=== PATIENT | female | born 1970 | race Caucasian/White ===

== ENCOUNTER 2024-12-26 12:36 | Inpatient (IN) | payer BC, SELFPAY ==
[2024-12-26] VITALS (13 sets, daily range): BP systolic 105–133; BP diastolic 66–85; BMI 39.4; BMI 38.3
[2024-12-26 06:29] LABS: ALT (SGPT) 14 U/L (0-35); AST (SGOT) 13 U/L (14-36); Albumin 3.8 g/dl (3.5-5.0); Alkaline Phosphatase 72 U/L (38-126); Blood Urea Nitrogen 16 mg/dl (7-17); Calcium 9.5 mg/dl (8.4-10.2); Carbon Dioxide 26 mmol/L (22-30); Chloride 103 mmol/L (98-107); Glucose 126 mg/dl (70-99); Potassium 4.0 mmol/L (3.5-5.1); Sodium 135 mmol/L (135-145); Total Protein 5.9 g/dl (6.3-8.2); eGFR > 60.00
--- NOTE | 2024-12-26 06:33 | ED.GENMED ---
History of Present Illness
General
Chief Complaint: Headache
Source: patient
Exam Limitations: none
Time Seen by Provider: 12/26/24 06:17
Nursing documentation reviewed up to this point in time: agreed with
History of Present Illness
History of Present Illness:
Note:
CHIEF COMPLAINT(S)
Fever and migraine headache.
HISTORY OF PRESENT ILLNESS
The patient is a 54-year-old female with a history of non-Hodgkins lymphoma currently undergoing chemotherapy at [facility]. She presents with fever and severe migraine headaches. She reports the fever started a few days ago and has been fluctuating, with
a peak recorded at 100.6�F overnight. She has attempted to manage it at home but sought medical attention due to persistent symptoms. The migraine has persisted for the past three days and is more severe than her past migraines, accompanied by
nausea. She denies any urinary symptoms. There is no significant cough present, although the patient acknowledges a mild, non-specific cough. There are no known exposures to sick individuals, and she exercises caution following her chemotherapy
treatments.
SOCIAL HISTORY
The patient tries to adhere to precautions post-chemotherapy, limiting her outings, although she did mention going out for meals.
REVIEW OF SYSTEMS
- General: Fever, headache.
- Head: Severe migraine headaches for three days, worse than previous episodes.
- Gastrointestinal: Associated nausea with headaches.
- Respiratory: Denies significant cough.
- Genitourinary: No urinary symptoms.
PHYSICAL EXAM
General: Alert, no acute distress.
Skin: Warm, dry.
Head: Normocephalic, atraumatic.
Neck: Supple, trachea midline.
Eye, Ears, Nose, Mouth, and Throat: Oral mucosa moist.
Cardiovascular: Normal peripheral perfusion, No edema.
Respiratory: Respirations are non-labored.
Gastrointestinal: Abdomen nondistended.
Back: Normal range of motion, Normal alignment.
Musculoskeletal: Normal range of motion, normal strength.
Neurological: Alert and oriented to person, place, time, and situation, No focal neurological deficit observed.
Psychiatric: Cooperative, appropriate mood & affect.
PLAN
- Administer medication to alleviate migraine headache.
- Perform blood cultures to assess potential infection.
- Conduct tests for influenza and COVID-19.
- Obtain a urine sample to rule out urinary tract infection.
- Consider chest X-ray to assess any underlying respiratory issues.
DIFFERENTIAL DIAGNOSIS
The Differential Diagnosis includes, in no particular order and is not limited to:
1. Infection related to immunosuppression (e.g., bacterial, viral)
2. Drug-induced fever
3. Chemotherapy-related side effects
4. Common cold/flu
5. Viral syndrome
6. Urinary tract infection
7. Sinusitis
8. Meningitis
9. Sepsis
10. Primary headache disorders (e.g., migraines)
CARE-UPDATE
12/26/24 - 08:14
Continue current treatment plan for neutropenic fever with cefepime. Assess and manage presenting symptoms suggestive of migraine, meningitis, or other intracranial infection. Patient to be admitted under hospitalist care for further evaluation and
management of symptoms. Additional diagnostics and monitoring may be required based on clinical progression.
Disposition:
SUMMARY OF ENCOUNTER
The patient, a 54-year-old female with a history of non-Hodgkins lymphoma currently undergoing chemotherapy, presented to the emergency department with fever and severe migraine headaches. Given her immunocompromised state and the concern for
potential infection, she was evaluated for neutropenic fever. Initial evaluations included plans for blood cultures, influenza, and COVID-19 testing, as well as administration of medication for migraine relief. The hospitalist team was contacted to
admit the patient for further monitoring, given her risk factors and persistent symptoms. The patients condition was considered stable upon evaluation.
DISPOSITION
Admit.
ASSESSMENT
Suspected neutropenic fever associated with chemotherapy and severe migraine in the context of non-Hodgkins lymphoma.
MANAGEMENT OF THE PATIENTS CARE WAS DISCUSSED WITH
Hospitalist contacted for admission and further management.
PLAN
Admit the patient for further monitoring and management. Administer medications to address migraine headaches, conduct diagnostic tests to rule out infections, and continue supportive care for neutropenia.
MEDICATION RECONCILIATION
Migraine medication administered to address headache severity.
MEDICAL DECISION MAKING
-Complexity of Data Reviewed: Chronic conditions affecting care include non-Hodgkins lymphoma, ongoing chemotherapy, and history of migraines. Differential diagnosis considered conditions such as infection related to immunosuppression, drug-induced
fever, chemotherapy-related side effects, common cold/flu, viral syndrome, urinary tract infection, sinusitis, meningitis, sepsis, and primary headache disorders.
-Data:
Category 1: Blood cultures and influenza/COVID-19 tests were ordered. Chest X-ray and urine sample were considered to rule out other potential sources of infection.
Category 3: Management and patient care were coordinated with the hospitalist team for admission due to the complexity and risk associated with the patients immunocompromised state.
DIAGNOSIS
Neutropenic fever (ICD-10 D70.9), Non-Hodgkin lymphoma (ICD-10 C85.90), Migraine (ICD-10 G43.909).
Phy Exam
Physical Exam
Physical Exam:
.
Course
Orders/Labs/Results
Orders:
Orders
12/26/24 05:49
CMP [Comprehensive Metabolic Panel] Urgent
Complete Blood Count/With Diff Urgent
Manual Differential Urgent
12/26/24 06:29
Ketorolac [Toradol] 15 mg IV NOW STA
12/26/24 06:37
Diphenhydramine [Benadryl] 25 mg IV NOW STA
Metoclopramide [Reglan] 10 mg IV NOW STA
12/26/24 07:00
Blood Culture Q30M
ANABELLE Source: Blood/Venous
Specimen Description:
12/26/24 07:05
COVID-19 Antigen Urgent
Source: Nasal Swab
Lactic Acid Q4H
Comment: CANCEL 2nd LACTIC ACID IF 1st LACTIC ACID IS LESS THAN 2
Urinalysis Reflex To Culture Urgent
Date Specimen was Collected: 12/26/24
Time Specimen was Collected: 07:04
Urine Microscopic Reflex Cult Urgent
Blood Culture Q30M
ANABELLE Source: Blood/Venous
Specimen Description:
Influenza A+B Rapid Molecular Urgent
ANABELLE Source: Nasal Swab
Specimen Description:
12/26/24 07:19
CR Chest - 2 Views Urgent
Comment:
Reason For Exam: fever
12/26/24 08:10
Acetaminophen [Tylenol] 650 mg PO NOW STA
Cefepime HCl [Maxipime] 2,000 mg IV NOW STA
12/26/24 08:46
Morphine Sulfate 4 mg IV NOW STA
12/26/24 10:30
Lactic Acid Q4H
Comment: CANCEL 2nd LACTIC ACID IF 1st LACTIC ACID IS LESS THAN 2
12/26/24 11:56
Admit/Transfer Patient As Directed
Co-Sign Provider:
Level of Care: Inpatient admission
Assign to:: Telemetry
Physician / Group: Dr. Gigi Correia/Hospitalists
Diagnosis: Neutropenic Fever
Reason for Telemetry: Arrhythmia
Date to Stop Telemetry: 12/29/24
Time to Stop Telemetry: 11:00
Reason for Hospitalization: Neutropenic Fever
Expected length of stay greater than two midnights?: Yes
ELOS- Estimated Length of Stay in days: 3
I certify the patient meets the requirements for IP care: Yes
12/26/24 11:57
Code Status As Directed
Resuscitation Status: Full Code
12/26/24 12:03
Precautions As Directed
Type of Precautions: Neutropenic
12/26/24 12:06
ONCOLOGY CONSULT Routine
Consulting Provider: John Mensah
Was physician already notified: Yes
Reason for consult: Neutropenic Fever. Non-Hodgkins Lymphoma getting chemo currently
12/26/24 12:09
INFECTIOUS DISEASE CONSULT Routine
Consulting Provider: Juan Feliciano
Was physician already notified: Yes
Reason for consult: Neutropenic Fever -- Heme/Onc Requested ID consult
12/26/24 16:30
Cefepime HCl [Maxipime] 2,000 mg IV Q8H
12/29/24 11:00
DC Protocol for Telemetry ONCE
Abnormal Lab Results
12/26/24 12/26/24
05:49 07:05
WBC 0.5 L* 10^3/uL
(4.8-10.8)
RBC 3.19 L 10^6/uL
(4.20-5.40)
Hgb 9.8 L g/dL
(12.0-16.0)
Hct 28.0 L %
(37.0-47.0)
RDW 16.1 H %
(11.5-14.5)
Plt Count 74 L 10^3/uL
(130-400)
MPV 11.7 H fL
(7.4-10.4)
Abs Neuts (Manual) 0.0 L* 10^3/uL
(1.4-6.5)
Segmented Neutrophils 3 L %
(42-75)
Lymphocytes (Manual) 80 H %
(20-51)
Monocytes (Manual) 11 H %
(2-9)
Glucose 126 H mg/dl
(70-99)
AST 13 L U/L
(14-36)
Total Protein 5.9 L g/dl
(6.3-8.2)
Ur Occult Blood Reflex 1+ A
(Negative)
Urine Bacteria (Reflex) Few A
(Negative)
Urine Yeast Few A
(Negative)
12/26/24 05:49
12/26/24 05:49
Vital Signs
Initial and Last Documented VS:
Initial Vital Signs
Temp Pulse Resp BP Pulse Ox
98.3 F 109 18 108/71 100
12/26/24 04:12/26/24 04:29 12/26/24 04:29 12/26/24 04:12/26/24 04:29
Last Documented Vital Signs
Temp Pulse Resp BP Pulse Ox
98.3 F 109 18 117/70 96
12/26/24 04:29 12/26/24 04:29 12/26/24 04:29 12/26/24 12:00 12/26/24 13:00
*Pulse Oximetry
SaO2: 100
Oxygen Mode of Delivery: Room air
Patient hypoxic: no
*Critical Care Note
Total Time (30-74mins, 75-104mins- exclusive of procedures): Not Applicable
ED Attending Note
-
Portions of this chart may have been created with voice recognition software.� Occasional wrong word or��sound alike� substitutions may have occurred due to the inherent limitations of voice recognition software.
Discharge Plan
Departure
Patient Disposition: Admit
Date of Disposition: 12/26/24
Time of Disposition: 08:10
Admit to: Med/Surg
Presentation/result/management discussed w/ accepting MD/DO: Hospitalist
Patient with high blood pressure during this ER visit?: No
Condition: Good
Discharge Problem:
Neutropenia with fever, Migraine
Interventions
Interventions:
*Risk Screen - Suicide Last Done: 12/26/24 07:45
*General Assessment Last Done: 12/26/24 04:29
*Neglect/Abuse Screening Last Done: 12/26/24 04:29
*ED- Fall Risk Assessment Last Done: 12/26/24 07:45
*ED COVID-19 Vaccine History Last Done: 12/26/24 07:45
ED- Neurological Assessment Last Done: 12/26/24 05:30
[2024-12-26] MEDS: TORADOL 15 MG IV (06:46)
[2024-12-26] MEDS: BENADRYL 25 MG IV (06:48)
[2024-12-26] MEDS: REGLAN 10 MG IV (06:51)
[2024-12-26 07:17] LABS: Hematocrit 28.0 % (37.0-47.0); Hemoglobin 9.8 g/dL (12.0-16.0); Mean Corp Hgb Conc. 35.0 g/dL (33.0-37.0); Mean Corpuscular Volume 87.8 fL (81.0-99.0); Platelet Count 74 10^3/uL (130-400); Red Cell Dist. Width 16.1 % (11.5-14.5)
[2024-12-26 07:43] LABS: COVID-19 Antigen Negative (Negative)
[2024-12-26 07:59] LABS: Urine Character Clear (Clear)
[2024-12-26 08:05] LABS: Normal RBC Morphology Yes; Platelets Checked Yes
[2024-12-26 08:06] LABS: Total Cells Counted 100
[2024-12-26 08:07] LABS: Absolute Neutrophils -Man Diff 0.0 10^3/uL (1.4-6.5)
[2024-12-26] MEDS: MAXIPIME 2000 MG IV ×2 (08:32→18:53)
[2024-12-26 08:45] LABS: Urine Squamous Cell >30 /LPF (Few)
--- NOTE | 2024-12-26 08:45 | HPS.HSE ---
Addendum entered and electronically signed by Gigi Correia MD 12/26/24 18:44:
No CT Head needed at this time
Original Note:
Family Physician
-
Family Physician: Peña Mathis
Chief Complaint
-
Fevers
History of Present Illness
54 year old female with past medical history of palpitations (sees computer programming supervisor Humberto at [place]), hypertension, DVT, non-Hodgkins lymphoma (initially had neck lump when first diagnosed), currently undergoing chemotherapy at [facility] and GERD,
Migraine Headaches and TMJ, presented with fever and severe migraine headaches. She reported that the fever started a few days ago and has been on and off, with a peak recorded at 100.6�F overnight. Patient also had Migraine headache similar to her
past episodes. She denied any urinary symptoms, significant cough, shortness of breath, bleeding, chest pain, joint swelling or pain, new skin rash, any known exposures to sick individuals. She exercises caution following her chemotherapy treatments.
Medical History
Past Medical History
Past Medical History: Reports Other (As per HPI above)
Past Surgical History: Reports Other (Umbilical Hernia, Tooth Extractions, Right Foot Infection with Fluid Drainage Performed)
Social History
Tobacco: Non-smoker
Alcohol: Former
Drug: None
Family History
Family History: Not pertinent
Allergies / Home Medications
Allergies reflects when Allergies were last updated in [employer].
Home Medications with original date entered in [employer]
Allergy/Medication List:
Allergies
Allergy/AdvReac Type Severity Reaction Status Date / Time
No Known Allergies Allergy Unverified 12/26/24 04:31
Home Medications
allopurinol 300 mg tablet 300 mg PO DAILY 12/26/24
apixaban 5 mg tablet (Eliquis) 5 mg PO BID 12/26/24
lorazepam 0.5 mg tablet 0.5 mg PO TID 12/26/24
metoprolol tartrate 50 mg tablet (Lopressor) 25 mg PO BID 12/26/24
omeprazole 20 mg capsule,delayed release 20 mg PO DAILY 12/26/24
quetiapine 50 mg tablet (Seroquel) 50 mg PO DAILY PRN anxiety 12/26/24
rosuvastatin 10 mg tablet 10 mg PO DAILY 12/26/24
Review of Systems
-
A 12 point ROS was completed and negative except as noted: Yes
Physical Exam
Vital Signs
Vital Signs
Temp Pulse Resp BP Pulse Ox
98.3 F 109 18 113/69 97
12/26/24 04:29 12/26/24 04:29 12/26/24 04:29 12/26/24 08:00 12/26/24 08:30
Physical Exam
General: No Apparent Distress, Comfortable and Conversant
HEENT: NormoCephalic and Moist mucous membranes
Respiratory: Clear
Cardiac: S1/S2 and Regular Rhythm
GI: Soft, Non Tender and Normal Bowel Sounds
Genito-urinary: Other (No suprapubic tenderness)
Musculoskeletal: No Cyanosis
Skin: Warm and Dry
Neuro: Awake, Alert, AO x 3 and Nonfocal/grossly intact
Psych: Calm and Intact Judgment/Insight
Laboratory Results
-
12/26/24 05:49
12/26/24 05:49
Laboratory Results
Lactic Acid 1.9 mmol/L (0.7-2.0) 12/26/24 07:05
Total Bilirubin 0.9 mg/dl (0.2-1.3) 12/26/24 05:49
AST 13 U/L (14-36) L 12/26/24 05:49
ALT 14 U/L (0-35) 12/26/24 05:49
Alkaline Phosphatase 72 U/L (38-126) 12/26/24 05:49
Impression/Plan
-
Assessment/Plan
Neutropenic Fever
Immunocompromised State
Non-Hodgkins lymphoma (initially had neck lump when first diagnosed) - currently undergoing chemotherapy at [facility] and [facility]
-Blood cultures x 2 sets
-Cefepime 2 gram IV Q8H broad spectrum antibiotics
-Neutropenic Precautions
-Flu and COVID, UA with some occult blood, CXR read with 1) Low inspiratory volumes; 2) Linear opacities in each lung base, which may represent subsegmental atelectasis, aspiration, or pneumonia.
-Oncology consults given high risk nature of this condition -- Dr. Mensah recommended ID consultation as well, so consulted ID, appreciate ID and Heme/Onc
Recent DVT Diagnosis
-Continue Eliquis
Microscopic Hematuria
-Recheck UA outpatient
-No symptoms of UTI, no suspicion for UTI
Severe 'Migraine' Headaches
-Check CT Head
-Neurological checks
Nausea Associated with Headaches
-If QTc is okay, can do Compazine IV prn
History of palpitations (sees computer programming supervisor Humberto at [place])
-Continue home Lopressor
Hypertension
-Continue home Lopressor
Anxiety
-Continue scheduled Ativan
-Continue as needed Seroquel
Migraine Headaches
-Received benadryl, Toradol, Reglan, Tylenol and Morphine in the ED with good relief of headache
TMJ
DVT Prophylaxis: Eliquis
Code Status: Full Code
[2024-12-26 08:48] LABS: Urine Red Blood Cell 0-2 /HPF (0-2); Urine White Cell 0-2 /HPF (0-5)
[2024-12-26] MEDS: MORPHINE SULFATE 4 MG IV (09:17)
--- NOTE | 2024-12-26 09:40 | CM ---
Met with patient and at the bedside in the ED
Pharmacy verified: [facility] @[address]
Lives with and 17 yr old daughter; multilevel home; 3 steps to enter; 14 steps to bedroom and full bath w/ walk-in shower, bench, grab bar on door; railings on stairs; half bath on 1st floor
PLOF: reported she is independent with ambulation, stairs, and ADLs; drives; not working. Receiving chemotherapy @ [facility]
DME: has a rolling walker but no longer needs it
NO SNF or Home Health utilization history
Spouse will transport home
Plan: Discharge to home when medically stable; Case Management will monitor for needs/services
--- NOTE | 2024-12-26 12:17 | CON.ONC ---
Documented by User: Magdalene Moore , Resident 12/26/24 13:46
Consultation
-
Date Consultation Requested: 12/26/24
Date Consultation Performed: 12/26/24
Requesting Provider: Gigi Correia MD
Performing Provider: Dr. Mensah
Reason for Consultation: Neutropenic Fever
Impression
Impression
Non Hodgkin's Lymphoma
Neutropenic Fever
Essential Hypertension
DVT
Palpations (Following with Dr. Paul)
GERD
Migraines
TMJ
Plan
Plan
Non-Hodgkin's Follicular Lymphoma currently on R-CHOP
Neutropenic Fever
-Follow Blood cultures x2
-Continue broad spectrum antibiotics in the setting of neutropenic fever.
-Continue Anticoagulation
-At this time, due to recent GSFc injection 1 week ago, no indication for GCSF treatment. Will reevaluate throughout hospitalization pending symptoms
-Defer treatment of Non-Hodgkin�s Lymphoma to primary outpatient oncologist. Currently, patient is receiving R-CHOP
-Continue to monitor CBC + Differential for improvement. Expect to see rise in Lymphocytes and Monocytes before improvement in neutrophils.
-Will continue to follow
Patient History
History of Present Illness
This is a 54 y/o female with pmhx of Non-Hodgkin�s Follicular Lymphoma who presented to the ED today with a migraine that began on Sunday. Earlier today she also developed a fever, and previously had been instructed to report immediately to the ED
if she had a temperature > 100.3
For her Non-Hodgkin�s Follicular Lymphoma (Unknown stage), she follows with Dr. Zepeda at [facility] in the [facility]. She was initially diagnosed in 09/2023 with a groin mass, and had initially watchfully waited before the disease
progressed with new tumors in her armpits. She was then treated with immunotherapy (Rituximab) which concluded in 02/2024. However, she experienced a reoccurrence in Spring of this year with a blood clot in her left leg, difficulty with ambulation,
and lower extremity swelling in the left leg. She was then started on R-CHOP and has received three doses so far. For the second two doses, she also received GCSF injections the day following, which she self-administers at home. The most recent
injection was around 1 week ago. She has a PET scan scheduled for 3 weeks from now. She is not certain how many cycles she will be treated for in total, as this will be based on the PET scan results.
Today, she does report she feels the groin mass has shrunk, and can no longer feel the masses under her armpits. She is now able to walk, which she could not do prior to R-CHOP therapy. She also has had improvement in her left lower extremity
swelling.
Past-Medical/Surgical History
Non-Hodgkin�s Follicular Lymphoma
Essential Hypertension
DVT
Palpations (Following with Dr. Paul)
GERD
Migraines
TMJ
Patient Medication
�Medication �Instructions �Recorded �Confirmed �Last Taken �Type
allopurinol 300 mg tablet 300 mg PO DAILY 12/26/24 12/26/24 Unknown History
apixaban 5 mg tablet (Eliquis) 5 mg PO BID 12/26/24 12/26/24 Unknown History
lorazepam 0.5 mg tablet 0.5 mg PO TID 12/26/24 12/26/24 Unknown History
metoprolol tartrate 50 mg tablet 25 mg PO BID 12/26/24 12/26/24 Unknown History
(Lopressor)
omeprazole 20 mg capsule,delayed 20 mg PO DAILY 12/26/24 12/26/24 Unknown History
release
quetiapine 50 mg tablet (Seroquel) 50 mg PO DAILY PRN anxiety 12/26/24 12/26/24 Unknown History
rosuvastatin 10 mg tablet 10 mg PO DAILY 12/26/24 12/26/24 Unknown History
Active Medications
Generic Name Dose Route Start Last Admin
Trade Name Freq PRN Reason Stop Dose Admin
Cefepime HCl 2,000 mg 12/26/24 16:30
Cefepime Hcl 2,000 Mg/12.5 Ml Vial IV
Q8H AKIL
Review of Systems
-
History Source: Patient
Constitutional: Reports Fever; Denies Weakness
Respiratory: Denies Cough
Cardiac: Denies Chest Pain
Neuro: Reports Headache; Denies Weakness
Physical Exam
-
General: Well Developed, Well Nourished, No Apparent Distress, Comfortable and Obese
Musculoskeletal: Other (Right lower extremity and left lower extremity of equal size)
Skin: Warm and Dry
Psych: Calm
Labs
Lab Results
WBC 0.5 10^3/uL (4.8-10.8) L* 12/26/24 05:49
RBC 3.19 10^6/uL (4.20-5.40) L 12/26/24 05:49
Hgb 9.8 g/dL (12.0-16.0) L 12/26/24 05:49
Hct 28.0 % (37.0-47.0) L 12/26/24 05:49
MCV 87.8 fL (81.0-99.0) 12/26/24 05:49
MCH 30.7 pg (27.0-31.0) 12/26/24 05:49
MCHC 35.0 g/dL (33.0-37.0) 12/26/24 05:49
RDW 16.1 % (11.5-14.5) H 12/26/24 05:49
Plt Count 74 10^3/uL (130-400) L 12/26/24 05:49
MPV 11.7 fL (7.4-10.4) H 12/26/24 05:49
Creatinine 0.6 mg/dL (0.6-1.0) 12/26/24 05:49
Vital Signs
Vital Signs
Temp Pulse Resp BP Pulse Ox
98.3 F 109 18 113/69 95
12/26/24 04:29 12/26/24 04:29 12/26/24 04:29 12/26/24 11:00 12/26/24 11:15

Documented by User: John Mensah MD 12/26/24 16:36
Plan
Plan
Non-Hodgkin's Follicular Lymphoma currently on R-CHOP
Neutropenic Fever
-Follow Blood cultures x2
-Continue broad spectrum antibiotics in the setting of neutropenic fever.
-Continue Anticoagulation
-At this time, due to recent GSFc injection 1 week ago, no indication for GCSF treatment. Will reevaluate throughout hospitalization pending symptoms
-Defer treatment of Non-Hodgkin�s Lymphoma to primary outpatient oncologist. Currently, patient is receiving R-CHOP
-Continue to monitor CBC + Differential for improvement. Expect to see rise in Lymphocytes and Monocytes before improvement in neutrophils.
-Will continue to follow
Hematology Addendum:
Patient seen and evaluated w/ resident - agree w/ resident note and plan as outlined
-NHL - follicular lymphoma - w/ large right groin mass/ right LE DVT spring 2024
-s/p 3 cycles R-CHOP at [facility] w/ GCSF w/ cycles 2 and 3 - last about a week ago
-neutropenic fever
-cont antibiotics - cultures pending
-follow CBC
-f/u at [facility] for continued management
Patient History
History of Present Illness
This is a 54 y/o female with pmhx of Non-Hodgkin�s Follicular Lymphoma who presented to the ED today with a migraine that began on Sunday. Earlier today she also developed a fever, and previously had been instructed to report immediately to the ED
if she had a temperature > 100.3
For her Non-Hodgkin�s Follicular Lymphoma (Unknown stage), she follows with Dr. Zepeda at [facility]. She was initially diagnosed in 09/2023 with a groin mass, and had initially watchfully waited before the disease progressed with new tumors in
her armpits. She was then treated with immunotherapy (Rituximab) which concluded in 02/2024. However, she experienced a reoccurrence in Spring of this year with a blood clot in her left leg, difficulty with ambulation, and lower extremity swelling
in the left leg. She was then started on R-CHOP and has received three doses so far. For the second two doses, she also received GCSF injections the day following, which she self-administers at home. The most recent injection was around 1 week ago.
She has a PET scan scheduled for 3 weeks from now. She is not certain how many cycles she will be treated for in total, as this will be based on the PET scan results.
Today, she does report she feels the groin mass has shrunk, and can no longer feel the masses under her armpits. She is now able to walk, which she could not do prior to R-CHOP therapy. She also has had improvement in her left lower extremity
swelling.
--- NOTE | 2024-12-26 15:50 | PTCARENOTE ---
Rn panel flow machine operator-Completed patient's admission assessment remotely on the phone.
[2024-12-26] MEDS: MORPHINE SULFATE 2 MG IV (16:40)
[2024-12-26] MEDS: ATIVAN 0.5 MG PO ×2 (16:40→22:06)
--- NOTE | 2024-12-26 18:24 | CON.ID ---
Consultation
-
Date/Time Consultation Requested: 12/26/2024 1209
Date/Time Consultation Performed: 12/26/2024 1800
Requesting Provider: Dr. Correia
Performing Provider: Dr. Feliciano
Reason for Consultation: Febrile neutropenia
Chief Complaint / Past History
History of Present Illness
Jahaira Pimentel is a 54-year-old female being evaluated the request of Dr. Correia regarding febrile neutropenia. History is obtained from chart review, along with patient interview.
The patient reports that she was diagnosed with non-Hodgkin's lymphoma in September 2023. She has been followed at the [facility]. According to history, she initially had watchful waiting, but disease progressed with tumors in the
axillary areas. She then tried immunotherapy (rituximab), with her last dose in February 2024. In the spring of this year she developed recurrence of disease, and also had a blood clot in her left leg. Thereafter she began R-CHOP. Following her
first course she recalls she developed fever, and was treated with a 7-day course of ciprofloxacin. She notes at that time she did not have G-CSF due to insurance issues. Following her second course she did receive G-CSF, but also was given a
7-day course of levofloxacin.
Approximately 1 week ago she received her third course of R-CHOP, and also received G-CSF. 2 days ago she developed migraines, and felt she had a slight fever, but over the next 24 hours temperatures went up to as high as 100.5 and she presented to
the emergency room for further evaluation. At present, she reports she feels 'okay'. She still has a headache but she denies any neck pain. She denies any chest pain or shortness of breath. She denies any abdominal pain, nausea, vomiting or
diarrhea. She denies any dysuria. She notes no sick contacts. She lives at home with her and 2 dogs.
Past History
Additional Past Medical History:
NHL
HLD
HTN
Migraines
Palpitations
Additional Past Surgical History:
Umbilical hernia repair
Right foot surgery
Allergy History:
No Known Allergies Allergy (Unverified 12/26/24 04:31)
Medications Reviewed: Yes
Current Antibiotics:
Cefepime 2 gm IV q.8 hours
Social History
Tobacco: Non-Smoker
Alcohol: None
Drug: None
Personal:
Living: With Family
Employment: Not Employed
Family History
Family History: Not Pertinent
Review of Systems
Vital Signs
Temp Pulse Resp BP Pulse Ox
98.5 F 111 19 133/85 97
12/26/24 17:43 12/26/24 17:43 12/26/24 17:43 12/26/24 17:43 12/26/24 17:43
Physical Exam
Physical Exam
Constitutional: No Acute Distress, Comfortable and Non-toxic
Eyes: No Conjunctival Hemorrhage and Sclera Anicteric
Oral: No Thrush and No Ulcers; Negative Ulcers
Cardiovascular: Regular Rate, S1/S2 and S3/S4
Pulmonary: Clear; Negative Wheezes, Rales or Rhonchi
Gastrointestinal: Soft, Non Tender, Non Distended and Normal Bowel Sounds
Extremities: Negative Edema, Cyanosis or Erythema
Skin: Warm and Dry; Negative Rash
Neurological: Awake and Alert
Psychological: Calm
Lab / Diagnostic Study Results
12/26/24 05:49
12/26/24 05:49
Total Counted 100 12/26/24 05:49
Abs Neuts (Manual) 0.0 10^3/uL (1.4-6.5) L* 12/26/24 05:49
Segmented Neutrophils 3 % (42-75) L 12/26/24 05:49
Band Neutrophils 0 % (0-3) 12/26/24 05:49
Lymphocytes (Manual) 80 % (20-51) H 12/26/24 05:49
Eosinophils (Manual) 6 % (0-6) 12/26/24 05:49
Lactic Acid Cancelled 12/26/24 10:30
Ur Squamous Epith Cells >30 /LPF (Few) 12/26/24 07:05
Microbiology Results
Micro:
12/26/24 07:05 Influenza Types A & B (DRE) - Final
Nasal Swab Negative for Influenza A & B, NAAT
Negative results must be combined with clinical observations
and patient history.
Nucleic Acid Amplification test (NAAT)performed on the
[employer] platform.
12/26/24 07:05 Blood Culture - Pending
Blood/Venous
Imaging:
12/26/2024 CXR (2 view): cardiomediastinal silhouette within normal limits. Right IJ chest port tip projects over the cavoatrial junction. No expiratory volumes noted. No pleural effusion or pneumothorax.
Assessment / Plan
Febrile neutropenia
NHL
- s/p R-CHOP 1 week ago
HLD
HTN
Migraines
Recommendations:
Continue with empiric cefepime at current dose (2 gm IV q.8 hours.
Monitor white count and temperature curve.
Repeat blood cultures for fever greater than 101 degrees.
Follow-up for marrow recovery.
Continue neutropenic precautions.
[2024-12-26] MEDS: STERILE WATER FOR INJECTION 10 ML IV (18:53)
[2024-12-26] MEDS: ELIQUIS 5 MG PO (20:16)
[2024-12-26] MEDS: LOPRESSOR 25 MG PO (20:16)
[2024-12-27] MEDS: MAXIPIME 2000 MG IV ×3 (01:00→16:29)
[2024-12-27] MEDS: STERILE WATER FOR INJECTION 10 ML IV ×3 (01:00→16:29)
[2024-12-27] MEDS: MORPHINE SULFATE 2 MG IV ×2 (01:03→07:10)
[2024-12-27 03:18] VITALS: BP 142/74
[2024-12-27 07:00] VITALS: BP 145/81
[2024-12-27] MEDS: LOPRESSOR 25 MG PO ×2 (08:25→20:34)
[2024-12-27] MEDS: ZYLOPRIM 300 MG PO (08:26)
[2024-12-27] MEDS: ELIQUIS 5 MG PO ×2 (08:27→20:34)
[2024-12-27] MEDS: ATIVAN 0.5 MG PO ×3 (08:27→21:45)
[2024-12-27] MEDS: CRESTOR 10 MG PO (08:27)
[2024-12-27] MEDS: PROTONIX 40 MG PO (08:27)
[2024-12-27 08:43] LABS: Hematocrit 29.3 % (37.0-47.0); Hemoglobin 10.0 g/dL (12.0-16.0); Mean Corp Hgb Conc. 34.1 g/dL (33.0-37.0); Mean Corpuscular Volume 87.7 fL (81.0-99.0); Platelet Count 71 10^3/uL (130-400); Red Cell Dist. Width 16.1 % (11.5-14.5)
--- NOTE | 2024-12-27 08:53 | W.PN.HOSP.TC ---
Today's Communication/Plan
-
see PN
Assessment / Plan
Assessment / Plan
54yo F with PMHX of GERD, HTN, HLD, DVT on ELiquis, migraine headachesnon-hodgkins lymphoma on R-CHOP s/p 3rd cycle appr week ago and s/p gCSF developed migraine headaches and fever 4 days before admission. Headache did not subside and with fevers -
came to ED found neutropenia
A/P:
#Neutropenic fever
ID followed
Cefepime
BCx NTD
Chest XR withpout overt pneumonia, no respiraytory symptoms, Linear opacities in each lung base - atelectasis
UA without overt UTI
COVID-19 and influenza PCR neg
No meningeal signs
already after g-CSF
Neutropenic precautions
#Migraine
chronic
headaches are chronic and daily as resported by patient
She was taking 2 tabs of Exedrin daily for long time
Previouslyon Rizatriptan, now off 2/2 medication interaction
With no chnage in quality and since headaches persistent pretty much dily well beforeonset of fever - no significant concern for COUPLER infection
cont to monitor
Attempt Benadryl/Reglan IV
HEad CT in view of Eliquis
#Non-hodgkins lymphoma
#Mild anemia
#Thrombocytopenia
Pancytopenia 2/2 chemo
Onc followed
2/2 chemo
monitor
if plt<50k - reconsider Eliquis
#Hx of DVT
#Essential HTN
#GERD
#HLD
#TMJ
#Palpitations
cont home meds
DVT ppx - ELiquis
Full raul
I have spent at least 55 min reviewing chart, test results, communication with consultants and providing direct patient care
Anticipated Discharge: > 48 hours
Subjective/Interval History
-
Date of Service: December 27, 2024
Objective Data
-
Labs:
Laboratory Results
12/27/24
08:21
WBC 0.7 L*
Hgb 10.0 L
Hct 29.3 L
Plt Count 71 L
Sodium Pending
Potassium Pending
Chloride Pending
Carbon Dioxide Pending
BUN Pending
Creatinine Pending
Glucose Pending
Calcium Pending
Vital Signs:
Vital Signs
Temp Pulse Resp BP Pulse Ox
98.7 F 104 18 145/81 93
12/27/24 07:00 12/27/24 07:00 12/27/24 07:00 12/27/24 07:00 12/27/24 07:00
I&O
12/26/24 12/27/24 12/28/24
06:59 06:59 06:59
Intake Total 480 / 480 1008 / 1008
Balance 480 / 480 1008 / 1008
Review of Systems
-
History Source: Patient
All other systems: Reviewed and negative
Neuro: Reports Headache
Physical Exam
-
General: No Apparent Distress
HEENT: Normocephalic
Respiratory: Clear to Auscultation
Cardiac: Regular Rhythm
GI: Soft, Nontender and Nondistended
Skin: Warm
Neuro: Awake, Alert, Oriented, AO x 3, No Motor Deficits and Nonfocal/Grossly Intact
Psych: Calm
[2024-12-27 08:55] LABS: Blood Urea Nitrogen 12 mg/dl (7-17); Calcium 9.6 mg/dl (8.4-10.2); Carbon Dioxide 26 mmol/L (22-30); Chloride 102 mmol/L (98-107); Estimated Creatinine Clearance 123 ml/min; Glucose 114 mg/dl (70-99); Potassium 4.0 mmol/L (3.5-5.1); Sodium 134 mmol/L (135-145); eGFR > 60.00
[2024-12-27 11:00] VITALS: BP 134/79
[2024-12-27] MEDS: REGLAN 5 MG IV (11:50)
[2024-12-27] MEDS: BENADRYL 25 MG IV (11:51)
--- NOTE | 2024-12-27 11:58 | W.PN.ID1 ---
Date of Service
Date of Service: December 27, 2024
Today's Communication
Continue antibiotics.
Assessment / Plan
Febrile neutropenia
NHL
- s/p R-CHOP 1 week ago (3rd round) + G-CSF
HLD
HTN
Migraines
Recommendations:
Continue with empiric cefepime at current dose (2 gm IV q.8 hours.)
Monitor white count and temperature curve. Patient remains afebrile.
Repeat blood cultures for fever greater than 101 degrees.
Follow-up for marrow recovery.
Continue neutropenic precautions.
����������������������������������������������������������
Subjective / Review of Systems
Review of Systems: No Fever and No Chills
Vital Signs / Physical Exam
Vital Signs
Vital Signs
Temp Pulse Resp BP Pulse Ox
98.3 F 104 18 134/79 95
12/27/24 11:00 12/27/24 11:00 12/27/24 11:00 12/27/24 11:00 12/27/24 11:00
Physical Exam
Constitutional: No Acute Distress, Comfortable and Non-toxic
Eyes: Sclera Anicteric
Pulmonary: Non Labored
Gastrointestinal: Non Distended
Extremities: Negative Cyanosis or Erythema
Skin: Negative Rash or Jaundice
Neurological: Awake and Alert
Psychological: Calm
Objective Data
Lab Data
Lab Results
12/27/24 08:21
12/27/24 08:21
Estimated Creat Clear 123 ml/min 12/27/24 08:21
Lactic Acid Cancelled 12/26/24 10:30
Total Bilirubin 0.9 mg/dl (0.2-1.3) 12/26/24 05:49
AST 13 U/L (14-36) L 12/26/24 05:49
ALT 14 U/L (0-35) 12/26/24 05:49
Alkaline Phosphatase 72 U/L (38-126) 12/26/24 05:49
Most recent labs reviewed.
Micro Results:
12/27/24 08:21 Blood Culture - Pending
Blood/Venous
12/26/24 07:05 Blood Culture - Preliminary
Blood/Venous No Growth in 24 hours- Final report to follow
12/26/24 18:34 Blood Culture - Pending
Blood/Venous
12/26/24 07:05 Influenza Types A & B (DRE) - Final
Nasal Swab Negative for Influenza A & B, NAAT
Negative results must be combined with clinical observations
and patient history.
Nucleic Acid Amplification test (NAAT)performed on the
[employer] platform.
Imaging:
12/26/2024 CXR (2 view): cardiomediastinal silhouette within normal limits. Right IJ chest port tip projects over the cavoatrial junction. No expiratory volumes noted. No pleural effusion or pneumothorax.
[2024-12-27 14:48] LABS: Absolute Neutrophils -Man Diff 0.0 10^3/uL (1.4-6.5)
[2024-12-27 14:49] LABS: Anisocytosis 1+; Hypochromasia 1+; Normal RBC Morphology No; Ovalocytes Slight; Platelets Checked Yes; Tear Drop Red Blood Cells Slight; Total Cells Counted 100
[2024-12-27 15:04] VITALS: BP 113/76
[2024-12-27 19:32] VITALS: BP 119/73
[2024-12-27 23:35] VITALS: BP 113/74
[2024-12-28] VITALS (7 sets, daily range): BP systolic 101–133; BP diastolic 66–75
[2024-12-28] MEDS: STERILE WATER FOR INJECTION 10 ML IV ×3 (00:52→17:16)
[2024-12-28] MEDS: MAXIPIME 2000 MG IV ×3 (00:52→17:16)
[2024-12-28] MEDS: LOPRESSOR 25 MG PO ×2 (07:49→20:39)
[2024-12-28] MEDS: ATIVAN 0.5 MG PO ×3 (07:49→21:52)
[2024-12-28] MEDS: PROTONIX 40 MG PO (07:49)
[2024-12-28] MEDS: ZYLOPRIM 300 MG PO (07:49)
[2024-12-28] MEDS: ELIQUIS 5 MG PO ×2 (07:49→20:39)
[2024-12-28] MEDS: CRESTOR 10 MG PO (07:49)
[2024-12-28] MEDS: MORPHINE SULFATE 2 MG IV ×2 (08:06→20:40)
[2024-12-28 08:07] LABS: Hematocrit 30.8 % (37.0-47.0); Hemoglobin 10.3 g/dL (12.0-16.0); Mean Corp Hgb Conc. 33.4 g/dL (33.0-37.0); Mean Corpuscular Volume 88.3 fL (81.0-99.0); Platelet Count 89 10^3/uL (130-400); Red Cell Dist. Width 16.1 % (11.5-14.5)
[2024-12-28 08:30] LABS: Absolute Neutrophils -Man Diff 1.0 10^3/uL (1.4-6.5); Normal RBC Morphology Yes; Platelets Checked Yes; Total Cells Counted 100
[2024-12-28 08:36] LABS: ALT (SGPT) 15 U/L (0-35); AST (SGOT) 17 U/L (14-36); Albumin 4.1 g/dl (3.5-5.0); Alkaline Phosphatase 69 U/L (38-126); Blood Urea Nitrogen 11 mg/dl (7-17); Calcium 9.2 mg/dl (8.4-10.2); Carbon Dioxide 26 mmol/L (22-30); Chloride 103 mmol/L (98-107); Estimated Creatinine Clearance 123 ml/min; Glucose 116 mg/dl (70-99); Potassium 4.2 mmol/L (3.5-5.1); Sodium 135 mmol/L (135-145); Total Protein 6.3 g/dl (6.3-8.2); eGFR > 60.00
--- NOTE | 2024-12-28 09:32 | W.PN.HOSP.TC ---
Today's Communication/Plan
-
improving
cont Abx
CBC in AM
Assessment / Plan
Assessment / Plan
54yo F with PMHX of GERD, HTN, HLD, DVT on ELiquis, migraine headaches, non-Hodgkin lymphoma on R-CHOP s/p 3rd cycle appr week ago and s/p gCSF developed migraine headaches and fever 4 days before admission. Headache did not subside and with fevers
- came to ED found neutropenia. Resolving on Cefepime
A/P:
#Neutropenic fever, cannot r/o pneumonia with unspecified organism
ID followed
Cefepime
BCx NTD
Chest XR without overt pneumonia, now with new cough as of 12/28/24
UA without overt UTI
COVID-19 and influenza PCR neg
No meningeal signs
already after g-CSF
Neutropenic precautions
#Migraine
chronic
headaches are chronic and daily as reported by patient
She was taking 2 tabs of Excedrin daily for long time
Previously on Rizatriptan, now off 2/2 medication interaction
With no change in quality and since headaches persistent pretty much daily well before onset of fever - no significant concern for RN BABY infection
cont to monitor
Attempt Benadryl/Reglan IV - improved pain. Repeat as needed as QTc 485 and while monitoring QTc
HEad CT without acute findings
#Non-hodgkins lymphoma
#Mild anemia
#Thrombocytopenia
Pancytopenia 2/2 chemo
Onc followed
2/2 chemo
monitor
if plt<50k - reconsider Eliquis
#Hx of DVT
#Essential HTN
#GERD
#HLD
#TMJ
#MDD
#Palpitations
cont home meds
no suicidal thoughts
DVT ppx - Eliquis
Full raul
I have spent at least 51 min reviewing chart, test results, communication with consultants and providing direct patient care
Anticipated Discharge: 24 - 48 hours
Subjective/Interval History
-
Date of Service: December 28, 2024
Objective Data
-
Labs:
Laboratory Results
12/28/24
07:43
WBC 2.2 L*
Hgb 10.3 L
Hct 30.8 L
Plt Count 89 L D
Sodium 135
Potassium 4.2
Chloride 103
Carbon Dioxide 26
BUN 11
Creatinine 0.6
Glucose 116 H
Calcium 9.2
Total Bilirubin 0.5
AST 17
ALT 15
Alkaline Phosphatase 69
Vital Signs:
Vital Signs
Temp Pulse Resp BP Pulse Ox
98.0 F 100 16 131/75 95
12/28/24 08:30 12/28/24 08:30 12/28/24 08:30 12/28/24 08:30 12/28/24 08:30
I&O
12/27/24 12/28/24 12/29/24
06:59 06:59 06:59
Intake Total 480 / 480 2208 / 2208
Balance 480 / 480 2208 / 2208
Review of Systems
-
History Source: Patient
All other systems: Reviewed and negative
Physical Exam
-
General: No Apparent Distress and Comfortable
GI: Soft, Nontender and Nondistended
Neuro: Awake, Alert, Oriented and AO x 3
Psych: Calm
--- NOTE | 2024-12-28 11:22 | W.PN.ID1 ---
Date of Service
Date of Service: December 28, 2024
Today's Communication
Continue cefepime for today.
Assessment / Plan
Febrile neutropenia
- afebrile since admit
NHL
- s/p R-CHOP 1 week ago (3rd round) + G-CSF
HLD
HTN
Migraines
Recommendations:
Continue with empiric cefepime at current dose (2 gm IV q.8 hours.)
Monitor white count and temperature curve. Patient remains afebrile.
Blood cultures no growth to date.
Improvement in white count encouraging. If patient remains afebrile and cultures remain negative, will likely discontinue further antibiotics.
Continue neutropenic precautions.
����������������������������������������������������������
Chief Complaint
-: Other (Febrile neutropenia)
Subjective / Review of Systems
Review of Systems: No Fever and No Chills
Vital Signs / Physical Exam
Vital Signs
Vital Signs
Temp Pulse Resp BP Pulse Ox
98.0 F 100 16 131/75 95
12/28/24 08:30 12/28/24 08:30 12/28/24 08:30 12/28/24 08:30 12/28/24 08:30
Physical Exam
Constitutional: No Acute Distress, Comfortable and Non-toxic
Eyes: Sclera Anicteric
Pulmonary: Non Labored
Gastrointestinal: Non Distended
Neurological: Awake and Alert
Psychological: Calm
Objective Data
Lab Data
Lab Results
12/28/24 07:43
ANC = 1,000
12/28/24 07:43
Estimated Creat Clear 123 ml/min 12/28/24 07:43
Lactic Acid Cancelled 12/26/24 10:30
Total Bilirubin 0.5 mg/dl (0.2-1.3) 12/28/24 07:43
AST 17 U/L (14-36) 12/28/24 07:43
ALT 15 U/L (0-35) 12/28/24 07:43
Alkaline Phosphatase 69 U/L (38-126) 12/28/24 07:43
Most recent labs reviewed.
Micro Results:
12/27/24 08:21 Blood Culture - Preliminary
Blood/Venous No Growth in 24 hours- Final report to follow
12/26/24 07:05 Blood Culture - Preliminary
Blood/Venous No Growth in 48 hours- Final report to follow
12/26/24 18:34 Blood Culture - Preliminary
Blood/Venous No Growth in 24 hours- Final report to follow
12/26/24 07:05 Influenza Types A & B (DRE) - Final
Nasal Swab Negative for Influenza A & B, NAAT
Negative results must be combined with clinical observations
and patient history.
Nucleic Acid Amplification test (NAAT)performed on the
[employer] platform.
Imaging:
12/26/2024 CXR (2 view): cardiomediastinal silhouette within normal limits. Right IJ chest port tip projects over the cavoatrial junction. No expiratory volumes noted. No pleural effusion or pneumothorax.
[2024-12-29] MEDS: STERILE WATER FOR INJECTION 10 ML IV ×2 (01:06→09:07)
[2024-12-29] MEDS: MAXIPIME 2000 MG IV ×2 (01:06→09:07)
[2024-12-29 03:00] VITALS: BP 110/60
[2024-12-29 05:51] LABS: Hematocrit 26.8 % (37.0-47.0); Hemoglobin 9.1 g/dL (12.0-16.0); Mean Corp Hgb Conc. 34.0 g/dL (33.0-37.0); Mean Corpuscular Volume 91.2 fL (81.0-99.0); Platelet Count 77 10^3/uL (130-400); Red Cell Dist. Width 16.2 % (11.5-14.5)
[2024-12-29 07:19] VITALS: BP 123/70
[2024-12-29] MEDS: ZYLOPRIM 300 MG PO (09:07)
[2024-12-29] MEDS: CRESTOR 10 MG PO (09:08)
[2024-12-29] MEDS: ATIVAN 0.5 MG PO (09:08)
[2024-12-29] MEDS: PROTONIX 40 MG PO (09:08)
[2024-12-29] MEDS: LOPRESSOR 25 MG PO (09:08)
[2024-12-29] MEDS: ELIQUIS 5 MG PO (09:08)
[2024-12-29 10:21] LABS: Absolute Neutrophils -Man Diff 2.7 10^3/uL (1.4-6.5)
[2024-12-29 10:26] LABS: Anisocytosis Slight; Hypochromasia Slight; Normal RBC Morphology No; Platelets Checked YES
[2024-12-29 10:27] LABS: Polychromasia Slight
[2024-12-29 10:28] LABS: Stomatocytes FEW; Tear Drop Red Blood Cells FEW; Total Cells Counted 100
--- NOTE | 2024-12-29 10:41 | W.PN.HOSP.TC ---
Today's Communication/Plan
-
DC
Assessment / Plan
Assessment / Plan
54yo F with PMHX of GERD, HTN, HLD, DVT on ELiquis, migraine headaches, non-Hodgkin lymphoma on R-CHOP s/p 3rd cycle appr week ago and s/p gCSF developed migraine headaches and fever 4 days before admission. Headache did not subside and with fevers
- came to ED found neutropenia. Resolving on Cefepime. Cultures remain negative and patient asymptomatic, headaches resolved with resolution of neutropenia, afebrile for >72h and neutrophils recovered to 2.7 - as per ID - Abx can be stopped.
Medically stable for d/c home and recommended to repeat CBC in 1 week with hematology
A/P:
#Neutropenic fever, with unspecified organism
#Ruled out pneumonia
ID followed
Cefepime stopped as per discussion with ID on 12/29/24
BCx NTD
Chest XR without overt pneumonia, now with new cough as of 12/28/24
UA without overt UTI
COVID-19 and influenza PCR neg
No meningeal signs
already after g-CSF
Neutropenic precautions
#Migraine
chronic
headaches are chronic and daily as reported by patient
She was taking 2 tabs of Excedrin daily for long time
Previously on Rizatriptan, now off 2/2 medication interaction
With no change in quality and since headaches persistent pretty much daily well before onset of fever - no significant concern for CAR DISPATCHER infection
cont to monitor
Attempt Benadryl/Reglan IV - improved pain. Repeat as needed as QTc 485 and while monitoring QTc
HEad CT without acute findings
#Non-hodgkins lymphoma
#Mild anemia
#Thrombocytopenia
Pancytopenia 2/2 chemo
Onc followed
2/2 chemo
monitor
#Hx of DVT
#Essential HTN
#GERD
#HLD
#TMJ
#MDD
#Palpitations
cont home meds
no suicidal thoughts
DVT ppx - Eliquis
Full raul
I have spent at least 51 min reviewing chart, test results, communication with consultants and providing direct patient care
Anticipated Discharge: Today
Subjective/Interval History
-
Date of Service: December 29, 2024
Objective Data
-
Labs:
Laboratory Results
12/29/24
05:24
WBC 4.2 L
Hgb 9.1 L
Hct 26.8 L
Plt Count 77 L
Vital Signs:
Vital Signs
Temp Pulse Resp BP Pulse Ox
97.9 F 101 16 123/70 95
12/29/24 07:19 12/29/24 07:19 12/29/24 07:19 12/29/24 07:19 12/29/24 07:19
I&O
12/28/24 12/29/24 12/30/24
06:59 06:59 06:59
Intake Total 2207 1080 / 1080
Balance 2207 1080 / 1080
Review of Systems
-
History Source: Patient
All other systems: Reviewed and negative
Physical Exam
-
General: No Apparent Distress
Neuro: Awake, Alert, Oriented and AO x 3
Psych: Calm
[2024-12-29 10:56] VITALS: BP 122/71
--- NOTE | 2024-12-29 11:03 | W.DCSUMMARY ---
Discharge Summary
Discharge Data
Date of Admission: 12/26/24
Date of Discharge: 12/29/24
-
Pending Results: No
Hospital Course
54yo F with PMHX of GERD, HTN, HLD, DVT on ELiquis, migraine headaches, non-Hodgkin lymphoma on R-CHOP s/p 3rd cycle appr week ago and s/p gCSF developed migraine headaches and fever 4 days before admission. Headache did not subside and with fevers
- came to ED found neutropenia. Resolving on Cefepime. Cultures remain negative and patient asymptomatic, headaches resolved with resolution of neutropenia, afebrile for >72h and neutrophils recovered to 2.7 - as per ID - Abx can be stopped.
Medically stable for d/c home and recommended to repeat CBC in 1 week with hematology
I have spent at least 51 min reviewing chart, test results, communication with consultants and providing direct patient care
Patient was managed for:
#Neutropenic fever, with unspecified organism
#Ruled out pneumonia
#Migraine
#Non-hodgkins lymphoma
#Mild anemia
#Thrombocytopenia
#Hx of DVT
#Essential HTN
#GERD
#HLD
#TMJ
#MDD
#Palpitations
Discharge Plan
-
Patient Disposition: Home (Routine Discharge)
Discharge Diagnosis/Procedures: neutropenic fever
Blood Work: CBC with gas leak inspector helper in 5 days
Referrals:
Peña Mathis DO [Family Provider, Family Practice]
Prescriptions:
Continued
lorazepam 0.5 mg Tablet
0.5 mg PO TID
metoprolol tartrate [Lopressor] 50 mg Tablet
25 mg PO BID
omeprazole 20 mg Capsule,Delayed Release(Dr/Ec)
20 mg PO DAILY
allopurinol 300 mg Tablet
300 mg PO DAILY
rosuvastatin 10 mg Tablet
10 mg PO DAILY
quetiapine [Seroquel] 50 mg Tablet
50 mg PO DAILY PRN (Reason: anxiety)
Rx Instructions:
25-50mg PRN
Eliquis 5 mg Tablet
5 mg PO BID
melatonin 5 mg Tablet,Chewable
5 mg PO HS PRN (Reason: sleep)
Discharge Orders:
Discharge Patient (As Directed); Ordered 12/29/24
Ordered By: Justus Fisher
Discharge Date and Time
Print Language: WOLOF
--- NOTE | 2024-12-29 12:04 | W.PN.ID1 ---
Date of Service
Date of Service: December 29, 2024
Today's Communication
Discontinue cefepime.
Assessment / Plan
Febrile neutropenia
- afebrile since admit
NHL
- s/p R-CHOP 1 week ago (3rd round) + G-CSF
HLD
HTN
Migraines
Recommendations:
ANC 2700 today. Cultures have been negative. No fevers.
Discontinue further cefepime.
����������������������������������������������������������
Chief Complaint
-: Other (Febrile neutropenia)
Subjective / Review of Systems
Review of Systems: No Fever, No Chills and No Abdominal Pain
Vital Signs / Physical Exam
Vital Signs
Vital Signs
Temp Pulse Resp BP Pulse Ox
98.3 F 92 18 122/71 97
12/29/24 10:56 12/29/24 10:56 12/29/24 10:56 12/29/24 10:56 12/29/24 10:56
Physical Exam
Constitutional: No Acute Distress, Comfortable and Non-toxic
Pulmonary: Non Labored
Gastrointestinal: Non Distended
Neurological: Awake and Alert
Psychological: Calm
Objective Data
Lab Data
Lab Results
12/29/24 05:24
12/28/24 07:43
Estimated Creat Clear 123 ml/min 12/28/24 07:43
Lactic Acid Cancelled 12/26/24 10:30
Total Bilirubin 0.5 mg/dl (0.2-1.3) 12/28/24 07:43
AST 17 U/L (14-36) 12/28/24 07:43
ALT 15 U/L (0-35) 12/28/24 07:43
Alkaline Phosphatase 69 U/L (38-126) 12/28/24 07:43
Most recent labs reviewed.
Micro Results:
12/27/24 08:21 Blood Culture - Preliminary
Blood/Venous No Growth in 48 hours- Final report to follow
12/26/24 07:05 Blood Culture - Preliminary
Blood/Venous No Growth in 72 hours- Final report to follow
12/26/24 18:34 Blood Culture - Preliminary
Blood/Venous No Growth in 48 hours- Final report to follow
12/26/24 07:05 Influenza Types A & B (DRE) - Final
Nasal Swab Negative for Influenza A & B, NAAT
Negative results must be combined with clinical observations
and patient history.
Nucleic Acid Amplification test (NAAT)performed on the
[employer] platform.
Imaging:
12/26/2024 CXR (2 view): cardiomediastinal silhouette within normal limits. Right IJ chest port tip projects over the cavoatrial junction. No expiratory volumes noted. No pleural effusion or pneumothorax.
Care Review
Plan reviewed with: Physician (Hospitalist)
== END 2024-12-29 13:05 | disposition home or self-care (01) | DRG 809 ==
LOC: 3 WEST ACU 12:36
PROVIDERS: Student in an Organized Health Care Education/Training Program; ADMITTING PHYSICIAN Hospitalist; ATTENDING PHYSICIAN Internal Medicine; CONSULT PHYSICIAN Internal Medicine Hematology & Oncology; CONSULT PHYSICIAN Internal Medicine Infectious Disease; EMERGENCY PHYSICIAN Emergency Medicine; FAMILY PHYSICIAN Family Medicine
DX: D70.9 Neutropenia, unspecified (principal); C82.90 Follicular lymphoma, unspecified, unspecified site; D84.9 Immunodeficiency, unspecified; G43.909 Migraine, unspecified, not intractable, without status migrainosus; R50.81 Fever presenting with conditions classified elsewhere; I10 Essential (primary) hypertension; R31.29 Other microscopic hematuria; D69.6 Thrombocytopenia, unspecified; F41.9 Anxiety disorder, unspecified; M26.609 Unspecified temporomandibular joint disorder, unspecified side; K21.9 Gastro-esophageal reflux disease without esophagitis; F32.9 Major depressive disorder, single episode, unspecified; E78.5 Hyperlipidemia, unspecified; D61.810 Antineoplastic chemotherapy induced pancytopenia; T45.1X5A Adverse effect of antineoplastic and immunosuppressive drugs, initial encounter; Y92.9 Unspecified place or not applicable; Z86.718 Personal history of other venous thrombosis and embolism; Z92.21 Personal history of antineoplastic chemotherapy; Z79.01 Long term (current) use of anticoagulants; Z11.52 Encounter for screening for COVID-19
CPT/HCPCS: 70450; 71046; 80048; 80053; 81003; 81015; 83605; 85025; 87040; 87502; 87811; 93005; 96374; 96375; 99284